=== PATIENT | male | born 1995 | race Caucasian/White ===

== ENCOUNTER 2018-03-06 16:21 | Emergency (ER) | payer OTHER ==
[~2018-03-06] VITALS: Ht 152.4 cm; Wt 63.3 kg
[2018-03-06 16:22] VITALS: BP 107/73
[2018-03-06] MEDS ORDERED: KETOROLAC 30 MG/1 ML ONE (16:55)
[2018-03-06] MEDS ORDERED: KETOROLAC 30 MG/1 ML IM ONE (17:00)
[2018-03-06 18:13] LABS: MICROSCOPIC NOT IND
[2018-03-06 18:33] LABS: CULTURE INDICATED? NO
== END 2018-03-06 19:17 | disposition home or self-care (01) ==
LOC: ED 18:29
DX: N50.82 Scrotal pain (principal)
CPT/HCPCS: 76870; 81003; 96372; 99285; J1885